=== PATIENT | female | born 1985 ===

== ENCOUNTER 2024-03-15 20:27 | Emergency (ER) | payer MEDICAID, SELFPAY ==
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
[2024-03-15 20:35] VITALS: BP 141/83; PULSE 72; RESP 18; O2SAT 94; BMI 36.8
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
[2024-03-15] MEDS: HYDROmorphone 1 mg/mL INJ 1 mL IVP ×2 (20:51→21:33)
[2024-03-15 20:58] LABS: Basophils # 0.1 10^3/uL (0.0-0.1); Basophils % 0.4 %; Eosinophils # 0.1 10^3/uL (0.0-0.8); Eosinophils % 0.6 %; Hematocrit 41.6 % (36-47); Lymphocytes # 2.5 10^3/uL (0.8-4.8); Lymphocytes % 15.5 %; Mean Corpuscular HGB Conc 31.7 g/dL (30-55); Mean Corpuscular Hemoglobin 29.9 pg (27-33); Mean Corpuscular Volume 94.1 fl (85-98); Mean Platelet Volume 11.5 fL (7.4-10.4); Monocytes # 1.7 10^3/uL (0.2-0.9); Monocytes % 10.6 %; Neutrophils # 11.56 10^3/uL (1.8-7.7); Neutrophils % 72.2 %; Nucleated Red Blood Cells % 0 %; Platelet Count 272 10^3/cmm (157-399); Red Blood Count 4.42 10^6/uL (3.85-5.65); Red Cell Distribution Width 12.1 % (12.1-15.1); White Blood Count 15.98 10^3/uL (3.29-11.43)
[2024-03-15 21:08] LABS: HCG, Serum Qual Negative (Negative)
[2024-03-15] MEDS: iohexol 350 mg/mL 500 mL Btl (per mL) IV (21:08)
[2024-03-15 21:16] LABS: Anion Gap 16.2 (5-19); Blood Urea Nitrogen 10 mg/dL (6-20); Calcium 9.2 mg/dL (8.5-10.5); Carbon Dioxide 24 mmol/L (22-29); Chloride 101 mmol/L (98-107); Creatinine Clr Calc Pharmacy 109.1188; Glomerular Filtration Rate 93.2 mL/min (90-130); Glucose 176 mg/dL (65-115); Osmolality Calculated 289 mOsm/kg (285-295); Potassium 3.2 mmol/L (3.5-5.1); Sodium 138 mmol/L (136-145)
[2024-03-15] MEDS: sodium chloride 0.9% 1,000 ML 999 ML IV (21:49)
[2024-03-15 22:13] VITALS: BP 136/89; PULSE 106; O2SAT 99
== END 2024-03-15 22:14 | disposition short-term general hospital (02) ==
PROVIDERS: Emergency Provider Emergency Medicine; Family Provider Obstetrics & Gynecology; PCP Obstetrics & Gynecology
DX: S32.401A Unspecified fracture of right acetabulum, initial encounter for closed fracture (principal); S35.511A Injury of right iliac artery, initial encounter; V89.2XXA Person injured in unspecified motor-vehicle accident, traffic, initial encounter
CPT/HCPCS: 36415; 70450; 70486; 71260; 72125; 73552; 74177; 80048; 84703; 85025; 96374; 96376; 99285; J1171; J7030